=== PATIENT | male | born 1990 | race African-American/Black ===

== ENCOUNTER 2019-06-24 10:54 | Emergency (ER) | payer OTHER ==
[2019-06-24 11:10] VITALS: TEMP 97.7; BMI 29.9
--- NOTE | 2019-06-24 11:20 | PDOC ---
History of Present Illness - General Chief Complaint: Pain, Acute Stated Complaint: RT FLANK PAIN Time Seen by Provider: 06/24/19 11:19 - History of Present Illness Initial Comments: 06/24/19 11:47 The patient is a 28 year old male with a history of HIV (CD4 680s; undetectable viral load), Kidney stones who presents for evaluation of right flank pain. The patient reports acute onset of 10/10 severe sharp right flank pain with radiation into his right groin beginning earlier this morning prompting his presentation to the ED for further evaluation. He states that his current symptoms feel similar to his prior kidney stone several years ago. He otherwise denies fevers, chills, SOB, chest pain, nausea, vomiting, abdominal pain, or changes with urination or bowel movements. Past History - Past Medical History Allergies/Adverse Reactions: Allergies Allergy/AdvReac Type Severity Reaction Status Date / Time No Known Allergies Allergy Verified 06/24/19 11:03 Home Medications: Ambulatory Orders Darunavir/Cob/Emtri/Tenof Alaf [Symtuza [phone] mg Tab] 1 each PO DAILY # 30 tablet 05/23/19 Dolutegravir Sodium [Tivicay] 1 tab PO DAILY #30 tablet 05/23/19 Fenofibrate Nanocrystallized [Tricor] 145 mg PO HS #30 tablet 05/23/19 [place]-3 Fatty Acids [[place]-3] 2 cap PO BID #120 capsule 05/23/19 Cholecalciferol (Vitamin D3) [D3-50] 1 cap PO WEEKLY #4 capsule 05/27/19 Oxycodone HCl/Acetaminophen [Percocet 5-325 mg Tablet -] 1 tab PO TID PRN #5 tablet MDD 3 06/24/19 Tamsulosin HCl [Flomax] 0.4 mg PO DAILY #7 capsule 06/24/19 Anemia: No Asthma: Yes (childhood) Cancer: No Cardiac Disorders: No CVA: No COPD: No CHF: No Dementia: No Diabetes: No GI Disorders: Yes (GERD) Disorders: No HTN: No Hypercholesterolemia: Yes (hypertrig) Liver Disease: No Seizures: No Thyroid Disease: No - Immunization History Immunization Up to Date: Yes - Suicide/Smoking/Psychosocial Hx Smoking History: Never smoked Have you smoked in the past 12 months: No Cigars Per Day: 0 Information on smoking cessation initiated: No Hx Alcohol Use: No Drug/Substance Use Hx: No Substance Use Type: Alcohol Hx Substance Use Treatment: No Review of Systems - Review of Systems Comments:: 06/24/19 11:53 Constitutional: No fevers, chills, fatigue, malaise HEENT: No Rhinorrhea, nasal congestion, visual changes Cardiovascular: No chest pain, syncope, palpitations, lightheadedness Respiratory: No Cough, SOB, Hemoptysis, Gastrointestinal: No Abdominal pain, Nausea, Vomiting, Constipation, Diarrhea, Melena Genitourinary: Right Flank Pain. No Dysuria, Frequency, Urgency, Hesitancy, Hematuria, Musculoskeletal: No Myalgia, arthralgia Skin: No rashes, itching, bruising, pallor Neurologic: No Headache, Dizziness, Numbness, Weakness, or Tingling Psychiatric: No Hallucinations. No SI or HI *Physical Exam - Vital Signs Last Vital Signs Temp Pulse Resp BP Pulse Ox 97.7 F 52 L 17 169/90 99 06/24/19 11:04 06/24/19 11:04 06/24/19 11:04 06/24/19 11:04 06/24/19 11:04 - Physical Exam Comments: 06/24/19 11:54 General Appearance: Nourished. In Moderate Apparent Distress HEENT: No Pharyngeal Erythema, Tonsillar Exudate, Tonsillar Erythema Neck: No Cervical Lymphadenopathy Respiratory/Chest: Lungs Clear, Normal Breath Sounds. No Crackles, Rales, Rhonchi, Wheezing Cardiovascular: Regular Rhythm, Regular Rate. No Murmur, Gallops, Rubs Gastrointestinal/Abdominal: Normal Bowel Sounds, Soft. No Guarding, Rebound, Tenderness Musculoskeletal: No CVA Tenderness Extremity: Normal Capillary Refill Integumentary: Normal Color, Dry, Warm Neurologic: Fully Oriented, Alert, Normal Mood/Affect, Normal Response ED Treatment Course - LABORATORY CBC & Chemistry Diagram: 06/24/19 11:20 06/24/19 11:24 Medical Decision Making - Medical Decision Making 06/24/19 11:54 The patient is a 28 year old male with a history of HIV (CD4 680s; undetectable viral load), Kidney stones who presents for evaluation of right flank pain. Differential includes but is not included to: Kidney stone, Pyelonephritis, UTI , Infectious, Metabolic Derangement. Given the patient's history and physical exam, we will obtain a cbc, cmp, UA, renal ct to evaluate further. We will treat with iv fluids, toradol, morphine and continue to monitor and reassess while here in the ED. 06/24/19 14:37 CBC, cmn are unremarkable. UA demonstrates blood. Renal CT demonstrates a 2.5 mm right sided kidney stone with mild hydroureter as read by our radiologist. The patient was reassessed and reports improvement in their symptoms. We are comfortable discharging the patient home in stable condition. Patient made aware of impression and plan, return precautions discussed including but not limited to worsening pain or symptoms, fevers, or signs of infection, chest pain , respiratory distress, inability to tolerate oral intake, dehydration, syncope , or neurologic changes. The patient is to follow up with PMD and specialist as recommended within 1 week, follow up information provided and the patient will call for an appointment. The patient is to take medications as instructed for duration of time and continue with supportive care, avoid triggers and precipitants. Patient is safe for outpatient follow-up. *DC/Admit/Observation/Transfer Diagnosis at time of Disposition: Kidney stone - Discharge Dispostion Disposition: HOME Condition at time of disposition: Stable Decision to Admit order: No - Prescriptions Prescriptions: Oxycodone HCl/Acetaminophen [Percocet 5-325 mg Tablet -] 1 tab PO TID PRN #5 tablet MDD 3 PRN Reason: Severe Pain Tamsulosin HCl [Flomax] 0.4 mg PO DAILY #7 capsule - Referrals Referrals: Nasim Acharya MD [Staff Physician] - - Patient Instructions Printed Discharge Instructions: DI for Kidney Stones Additional Instructions: 1) Please follow-up with your primary care doctor in the next 2-3 days. Please call tomorrow to schedule a follow up appointment. If you cannot follow up with your doctor within 1 week please return to the Emergency Department for any urgent issues. 2) Your laboratory results were normal here in the ER. Your CT scan shows that you have a kidney stone on the right side. You are to take Flomax and Ibuprofen at home to help manage your pain. You may take Percocet as needed for severe pain. We have sent prescriptions to your pharmacy. You are to follow up with our Urologist Dr. Acharya in 2-3 days to discuss your ER visit and further management of your symptoms. 3) If you have any worsening of symptoms or any other concerns please return to the ER immediately. Return if worsening symptoms including fevers, headache, vomiting, visual or hearing disturbances, abdominal pain, chest pain, shortness of breath, syncope, dehydration, inability to take things by mouth/vomiting, altered mental status, or worsening concerning symptoms. 4) Please continue taking your home medications as directed. Your medications on discharge include Flomax, Ibuprofen, Percocet. Side effects may include upset stomach, abdominal pain, vomiting, or diarrhea. Do not drink alcohol with your medications. - Post Discharge Activity
[2019-06-24] MEDS ORDERED: KETOROLAC TROMETHAMINE 30 MG/1 ML VIAL IVPUSH ONE (11:23)
[2019-06-24] MEDS ORDERED: SODIUM CHLORIDE 1,000 ML IV STA ×2 (11:23→12:40)
[2019-06-24] MEDS ORDERED: KETOROLAC TROMETHAMINE 30 MG/1 ML VIAL ONE (11:38)
[2019-06-24] MEDS ORDERED: morphine CARPU-JECT 4 MG/1 ML DISP.SYRIN IVPUSH ONE (11:39)
[2019-06-24] MEDS ORDERED: morphine SULFATE 4 MG/ML VIAL ONE (11:41)
[2019-06-24 11:48] LABS: BASO % 0.6 % (0-2.0); EOS % 0.9 % (0-4.5); HEMATOCRIT 48.7 % (35.4-49); HEMOGLOBIN 16.7 GM/dL (11.7-16.9); LYMPH % 53.4 % (8-40); MCH 30.4 pg (25.7-33.7); MCHC 34.2 g/dl (32.0-35.9); MEAN CELL VOLUME 88.7 fl (80-96); MEAN PLT VOLUME 8.7 fl (7.5-11.1); MONO % 8.8 % (3.8-10.2); NEUT % 36.3 % (42.8-82.8); PLATELET COUNT 237 K/MM3 (134-434); RBC 5.49 M/mm3 (4.00-5.60); RDW 13.9 % (11.9-15.9); WHITE BLOOD COUNT 7.5 K/mm3 (4.0-10.0)
[2019-06-24 12:16] LABS: ALBUMIN 4.1 g/dl (3.4-5.0); BILIRUBIN,TOTAL 0.3 mg/dL (0.2-1); BLOOD UREA NITROGEN 13.9 mg/dL (7-18); CALCIUM 9.2 mg/dL (8.5-10.1); CREATININE 1.5 mg/dL (0.55-1.3); POTASSIUM 4.1 mmol/L (3.5-5.1); TOT PROT 8.7 g/dl (6.4-8.2)
--- NOTE | 2019-06-24 12:54 | PDOC ---
Attending Attestation - Resident Resident Name: Dimitri Bal - ED Attending Attestation I have performed the following: I have examined & evaluated the patient, The case was reviewed & discussed with the resident, I agree w/resident's findings & plan, Exceptions are as noted - HPI HPI: 06/24/19 12:40 Mr. Caldwell is a 28 yo M h/o HIV (CD4 680s; undetectable viral load), h/o kidney stones who presents for evaluation of right flank pain. The patient reports acute onset of 10/10 severe sharp right flank pain with radiation into his right groin beginning this morning. He previously had a kidney stone, which he was able to pass Symptoms similar to that prior kidney stone No fevers or chills No hematuria No dysuria No nausea or vomiting - Physicial Exam PE: 06/24/19 12:42 GENERAL: The patient uncomfortable, is diaphoretic ENT: Ears normal, nares patent, oropharynx clear without exudates. Moist mucous membranes. NECK: Normal range of motion, supple LUNGS: Breath sounds equal, clear to auscultation bilaterally. No wheezes, and no crackles. HEART:Regular rate and rhythm, normal S1 and S2 without murmur, rub or gallop. ABDOMEN: Soft, Right flank pain EXTREMITIES: Normal range of motion, no edema. NEUROLOGICAL: Cranial nerves II through XII grossly intact. Normal speech. No focal neurological deficits. SKIN: Warm, Dry, normal turgor, no rashes or lesions noted. - Medical Decision Making 06/24/19 12:43 28 yo M h/o HIV and kidney stones who presents to the ER with a complaint of right flank pain Pt reports that pain began this morning Concerning for kidney stone Will do: Labs IVF Pain medications Spiral CT Re Assess 06/24/19 12:57 Laboratory Tests 06/24/19 06/24/19 06/24/19 11:20 11:24 11:24 WBC 7.5 Hgb 16.7 Hct 48.7 Plt Count 237 BUN 13.9 Creatinine 1.5 H Total Bilirubin 0.3 AST 38 H ALT [address]: tiny obstructing stone in the distal portion of the right UVJ measuring 2.5mm, mild hydro 06/24/19 13:02 Awaiting UA Anticipate discharge Laboratory Tests 06/24/19 14:04 Urine Blood 3+ H Urine Nitrite Negative Ur Leukocyte Esterase Negative Urine WBC (Auto) 0.7 Urine RBC (Auto) 39.3
[2019-06-24 14:27] LABS: PH,URINE 5.5 (5.0-8.0); URINE APPEARANCE CLEAR; URINE BILIRUBIN NEGATIVE (NEGATIVE); URINE COLOR YELLOW; URINE GLUCOSE (UA) NEGATIVE (NEGATIVE); URINE KETONE NEGATIVE (NEGATIVE); URINE LEUK ESTERASE NEGATIVE (NEGATIVE); URINE NITRITE NEGATIVE (NEGATIVE); URINE PROTEIN NEGATIVE (NEGATIVE)
[2019-06-24 14:56] VITALS: BP 134/83; PULSE 69
[2019-06-24 15:50] LABS: EPI CELLS 0.3 /HPF (0-5/HPF); HYALINE CASTS 2.61 /lpf (0-8); URINE BACTERIA 0.2 /hpf (NEGATIVE); URINE RBC 39.3 /hpf (0-4); URINE WBC 0.7 /hpf (0-5)
== END 2019-06-24 14:57 | disposition home or self-care (01) ==
LOC: JER 10:54
PROC: 3E0333Z Introduction of Anti-inflammatory into Peripheral Vein, Percutaneous Approach (ICD-10-PCS; principal; 2019-06-24)
PROC: 3E033NZ Introduction of Analgesics, Hypnotics, Sedatives into Peripheral Vein, Percutaneous Approach (ICD-10-PCS; 2019-06-24)
PROC: 3E0337Z Introduction of Electrolytic and Water Balance Substance into Peripheral Vein, Percutaneous Approach (ICD-10-PCS; 2019-06-24)
DX: N20.0 Calculus of kidney (principal); Z21 Asymptomatic human immunodeficiency virus [HIV] infection status; E78.49 Other hyperlipidemia; J45.909 Unspecified asthma, uncomplicated
CPT/HCPCS: 36415; 74176-TC; 80053; 81003; 83690; 85025; 96361; 96374; 96375; 99283-25; J7030

== ENCOUNTER 2023-12-28 11:24 | Emergency (ER) | payer OTHER ==
[2023-12-28 11:30] VITALS: BP 122/68; PULSE 82; RESP 20; TEMP 98.9; BMI 37.6
[2023-12-28] MEDS ORDERED: ACETAMINOPHEN 500 MG TABLET (FP) ONE (11:44)
[2023-12-28] MEDS ORDERED: IBUPROFEN 600 MG TABLET (FP) PO ONE (11:44)
[2023-12-28] MEDS: ACETAMINOPHEN 500 MG TABLET (FP) PO ONE (11:45)
[2023-12-28] MEDS: IBUPROFEN 600 MG TABLET (FP) PO ONE (11:45)
[2023-12-28 12:52] LABS: BASO % 0.5 % (0-2.0); EOS % 3.2 % (0-4.5); HEMATOCRIT 41.2 % (35.4-49); HEMOGLOBIN 13.7 GM/dL (11.7-16.9); LYMPH % 19.3 % (8-40); MCH 28.5 pg (25.7-33.7); MCHC 33.4 g/dl (32.0-35.9); MEAN CELL VOLUME 85.5 fl (80-96); MEAN PLT VOLUME 7.2 fl (7.5-11.1); MONO % 7.4 % (3.8-10.2); NEUT % 69.6 % (42.8-82.8); PLATELET COUNT 333 10^3/uL (134-434); RBC 4.82 M/mm3 (4.00-5.60); WHITE BLOOD COUNT 6.8 K/mm3 (4.0-10.0)
[2023-12-28] MEDS: LIDOCAINE HCL 2% (50ML VIAL) SQ ONE (12:57)
[2023-12-28] MEDS ORDERED: oxyCODONE HCL 5 MG TABLET ONE (13:01)
[2023-12-28] MEDS: oxyCODONE HCL 5 MG TABLET PO ONE (13:02)
[2023-12-28 14:07] LABS: ERYTHROCYTE SEDIMENTATION RATE 72 mm/hr (0-10)
[2023-12-28 14:53] LABS: BF WBC & OTHER NUCLEATED CELLS 6430 /mm3; BODY FLUID MONOCYTE 7 %
== END 2023-12-28 16:04 | disposition home or self-care (01) ==
LOC: JERFT 11:24
PROC: 0R9L00Z Drainage of Right Elbow Joint with Drainage Device, Open Approach (ICD-10-PCS; principal; 2023-12-28)
DX: M25.521 Pain in right elbow (principal); M19.021 Primary osteoarthritis, right elbow
CPT/HCPCS: 20605; 36415; 73070-TC-RT-FY; 85025; 85651; 86140; 86618; 87040; 87070; 87075; 87205; 89060; 99283-25